=== PATIENT | female | born 1970 | race Two or more races ===

== ENCOUNTER 2018-11-23 12:56 | Outpatient (CLI) | payer OTHER ==
[~2018-11-23 12:56] MED LIST: TAMOXIFEN CITRA20 MG PO; [UNRECOGNIZED DRUG - OTHER] PO
== END 2018-11-23 13:36 | disposition home or self-care (01) ==
LOC: SONOGRAMA 12:56
DX: R10.2 Pelvic and perineal pain (principal)

== ENCOUNTER 2018-11-26 15:44 | Outpatient (CLI) | payer OTHER | END 2018-11-26 15:47 | disposition home or self-care (01) | LOC: SONOGRAMA 15:44 | DX: C50.412 Malignant neoplasm of upper-outer quadrant of left female breast (principal); N60.11 Diffuse cystic mastopathy of right breast; N60.12 Diffuse cystic mastopathy of left breast ==

== ENCOUNTER 2018-12-17 14:06 | Outpatient (CLI) | payer OTHER | END 2018-12-17 16:07 | disposition home or self-care (01) | LOC: SONOGRAMA 14:06 | DX: N60.11 Diffuse cystic mastopathy of right breast (principal); N60.12 Diffuse cystic mastopathy of left breast ==

== ENCOUNTER 2019-01-03 10:35 | Outpatient (CLI) | payer OTHER ==
[2019-01-11] MEDS ORDERED: IBRERSARTAN PO (09:31)
[2019-01-11] MEDS ORDERED: ARIMIDEX PO (09:31)
[2019-01-11] MEDS ORDERED: COMPLETE OMEGA1 EACH PO (09:32)
[2019-01-11] MEDS ORDERED: CALCI PO (09:32)
[2019-01-11] MEDS ORDERED: ATORVASTATIN CA10 MG PO (09:32)
[2019-01-11] MEDS ORDERED: CENTRUM ADULTS1 EACH PO (09:33)
[2019-01-11] MEDS ORDERED: ZOLADEX3.6 MG (09:34)
== END 2019-01-03 10:40 | disposition home or self-care (01) ==
LOC: EKG 10:35
DX: R07.89 Other chest pain (principal); R05 Cough

== ENCOUNTER 2020-10-23 13:40 | Outpatient (CLI) | payer OTHER ==
[~2020-10-23 13:40] MED LIST changes: +ARIMIDEX PO; +ATORVASTATIN CA10 MG PO; +CALCI PO; +CENTRUM ADULTS1 EACH PO; +COMPLETE OMEGA1 EACH PO; +IBRERSARTAN PO; +ZOLADEX3.6 MG
== END 2020-10-23 13:43 | disposition home or self-care (01) ==
LOC: SONOGRAMA 13:40
PROVIDERS: ATTEND Obstetrics & Gynecology Maternal & Fetal Medicine
DX: R10.2 Pelvic and perineal pain (principal)

== ENCOUNTER → 2023-07-14 | Outpatient (CLI) | payer OTHER | END | disposition home or self-care (01) | LOC: SONOGRAMA 13:06 | PROVIDERS: ATTEND Obstetrics & Gynecology Maternal & Fetal Medicine | DX: R10.2 Pelvic and perineal pain (principal); C50.212 Malignant neoplasm of upper-inner quadrant of left female breast; N60.19 Diffuse cystic mastopathy of unspecified breast; N63.0 Unspecified lump in unspecified breast; N60.11 Diffuse cystic mastopathy of right breast ==

== ENCOUNTER 2025-01-26 12:04 | Outpatient (CLI) | payer OTHER | END 2025-01-26 12:05 | disposition home or self-care (01) | LOC: NUCLEAR 12:04 | DX: M81.0 Age-related osteoporosis without current pathological fracture (principal) ==

== ENCOUNTER 2025-01-26 13:52 | Outpatient (CLI) | payer OTHER | END 2025-01-26 13:58 | disposition home or self-care (01) | LOC: SONOGRAMA 13:52 | DX: C50.212 Malignant neoplasm of upper-inner quadrant of left female breast (principal) ==

== ENCOUNTER 2025-04-13 13:01 | Outpatient (CLI) | payer OTHER | END 2025-04-13 13:06 | disposition home or self-care (01) | LOC: SONOGRAMA 13:01 | DX: E04.2 Nontoxic multinodular goiter (principal) ==

== ENCOUNTER 2025-04-27 07:55 | Outpatient (CLI) | payer OTHER | END 2025-04-27 07:58 | disposition home or self-care (01) | LOC: SONOGRAMA 07:55 | PROVIDERS: ATTEND Pathology Anatomic Pathology & Clinical Pathology | DX: D34 Benign neoplasm of thyroid gland (principal); E07.89 Other specified disorders of thyroid; E04.2 Nontoxic multinodular goiter ==